=== PATIENT | male | born 1990 | race Caucasian/White ===

== ENCOUNTER → 2020-03-01 17:29 | Outpatient (CLI) | payer SELFPAY | LOC: MTDU 17:29 | DX: Z11.59 Encounter for screening for other viral diseases (principal) | CPT/HCPCS: 87635; C9803; U0005; U0003 ==

== ENCOUNTER 2022-11-10 13:02 | Observation (INO) | payer MEDICAID, SELFPAY ==
[2022-11-10 13:03] VITALS: BP 110/81; PULSE 86; RESP 18; TEMP 36.4; O2SAT 98; BMI 25.1
--- NOTE | 2022-11-10 16:05 | CT_ITS ---
STUDY: CTA HEAD AND NECK WITH CONTRAST REASON FOR EXAM: Male, 32 years old. Right facial weakness Right anterior tongue symp RADIATION DOSAGE (If Supplied By Facility): CTDIvol = ( 32.29 ) mGy, DLP = ( 1539.65 ) mGycm TECHNIQUE: CT angiography was performed with a multi-detector CT scanner. Data acquisition was obtained from the skull base through the vertex following intravenous administration of IV 100mL Isovue-370. MIP images were reconstructed from the axial data set. Post-processing of the angiographic images was performed, with multiplanar reformation and 3D reconstruction. Individualized dose optimization techniques were used for this CT. COMPARISON: No relevant priors. FINDINGS: Normal bilateral petrous carotid arteries. Normal right cavernous carotid artery with a normal supraclinoid bifurcation. Normal left cavernous carotid artery with a normal supraclinoid bifurcation. Normal right A1 segments of the anterior cerebral artery. Normal left A1 segments of the anterior cerebral artery. Normal intact anterior communicating artery (ACOM). Normal bilateral A2 segments of the anterior cerebral arteries. Normal right M1 and M2 segments of the middle cerebral arteries, with a normal M1 bifurcation. Normal left M1 and M2 segments of the middle cerebral arteries, with a normal M1 bifurcation. There is non-visualization of the right posterior communicating artery (PCOM). There is non-visualization of the left posterior communicating artery (PCOM). Normal bilateral vertebral arteries. Normal basilar artery with a normal basilar bifurcation. The visualized bilateral superior cerebellar (SCA) arteries are normal. Normal bilateral P1, P2 and visualized P3 segments of the posterior cerebral arteries. There is no demonstrated aneurysm of the jackson of [place]. There is no demonstrated abnormality of the visualized brain. AORTIC ARCH: Normal visualized aortic arch. Retroesophageal aberrant origin right subclavian artery. Origins are otherwise normal. RIGHT CAROTID ARTERIES: Normal right common carotid artery (CCA). Normal right common carotid bulb. Normal origin of the right internal carotid (ICA) artery without a hemodynamically significant stenosis. Normal visualized cervical portion of the right internal carotid artery. Normal origin of the right external carotid artery (ECA). LEFT CAROTID ARTERIES: Normal left common carotid artery (CCA). Normal left common carotid bulb. Normal origin of the left internal carotid (ICA) artery without a hemodynamically significant stenosis. Normal visualized cervical portion of the left internal carotid artery. Normal origin of the left external carotid artery (ECA). VERTEBRAL ARTERIES: Normal bilateral vertebral arteries. CT/CTA Head AND Neck W/ Contrast IMPRESSION: Aberrant origin right subclavian artery otherwise Normal CTA Head and neck with contrast. Sensitivity limited without 3-D reformats. An addendum will be performed if and when these become available. Electronically Signed: Juan Francisco Jerez MD at 17:50 EDT ,
--- NOTE | 2022-11-10 16:09 | EX.ED.DYSGE1 ---
HPI History of Present Illness Chief Complaint: Numb/Ting Informant: patient Narrative Narrative: 32-year-old healthy male presenting to the emergency room with altered sensation and taste. Patient states that yesterday morning he noticed a taste difference in the right anterior tongue. He also states that the tongue felt different compared to the left - almost like it was numb. He had a generalized headache later in the day and felt very fatigued. He states that today he noticed that he had altered sensation of the right perioral and cheek region. He notes that he feels that the right side of his smile is less on the left. He has no headache today. He denies any recent head or neck injury. He denies any arm or leg symptoms. No speech symptoms. He has not had any difficulty swallowing. No change in vision or hearing. He does state that the right eye does seem pulp drier compared to the left. He denies any rashes. PFSH PFSH Medical History no medical history no medical history Allergy/AdvReac Type Severity Reaction Status Date / Time No Known Allergies Allergy Verified 11/10/22 13:03 Social History (Updated 11/10/22 @ 16:[address] Francois Medina, DO) current gender identity: male Smoking Status: Former smoker substance use type: does not use ROS ROS ED Constitutional Constitutional ED: Denies chills, fever(s) or weight loss Eyes Eyes: Denies blurry vision, change in vision or diplopia ENT ENT ED: Reports other Details: See history of present illness ; Denies ear pain, rhinorrhea or sore throat Cardiovascular Cardiovascular: Denies chest pain, orthopnea, palpitations or racing heartbeat Respiratory/Chest Respiratory/Chest: Denies cough, dyspnea or orthopnea Gastrointestinal Gastrointestinal: Denies abdominal pain, diarrhea, nausea or vomiting Genitourinary Genitourinary ED: Denies dysuria, hematuria or urinary frequency Musculoskeletal Musculoskeletal: Denies arthralgias or myalgias Integumentary Denies abscess or rash Neurologic Neurologic: Reports headache(s), weakness and other Details: See history of present illness Psychiatric Psychiatric: Denies anxiety, depression, suicidal ideation or suicidal thoughts Endocrine Endocrinology: Denies polydipsia, polyphagia or polyuria Allergic/Immunologic Allergic/Immunologic ED: Denies mouth swelling, tongue swelling or urticaria EXAM Physical Exam Const Vital Signs: 09/19/23 13:03 Temperature 97.6 F L Temperature Source Temporal Pulse Rate 86 Respiratory Rate 18 Blood Pressure 110/81 H Blood Pressure Mean 90 Pulse Ox 98 Oxygen Delivery Method Room Air Positive well nourished and well developed General Appearance ED: well developed HEENT Reports normocephalic, head/scalp atraumatic, TM's clear and moist mucous membranes HEENT Narrative: When asked to stick his tongue out to the tongue seems to deviate to the left. He notes a decrease sensation in the right perioral right cheek region. He is able to wrinkle his forehead. There is decreased smile on the right compared to the left. I do not appreciate any lesions on the tympanic membrane or on the tip of the nose. The ear canal appears normal. There is a old scar on the right tympanic membrane from previous trauma. No facial rash. Tympanic Membrane ED: Yes TM's clear Eyes PERRL and EOMs intact bilaterally Neck no lymphadenopathy, supple and no JVD Neck Narrative: No carotid bruits auscultated. Resp normal respiratory effort and clear to auscultation bilaterally Cardio regular rate, regular rhythm and no murmurs GI normal to inspection, nondistended, normoactive bowel sounds and non-tender Palpation: soft Back/Spine no CVA tenderness and normal ROM Extremity normal to inspection General Extremety ED: Negative for edema General Extremity: Negative for edema Neuro oriented x3 and CN's II-XII intact bilaterally Neuro Narrative: See HEENT exam. NIH score of 2 for slight right facial droop and reported decreased sensation. Sensorium / Orientation: alert Psych mental status grossly normal Mood & Affect: Negative for depressed or tearful Skin no rashes or lesions noted and no wounds MDM MDM MDM Narrative Medical decision making narrative: Basic blood work was unremarkable. EKG shows a sinus bradycardia cardia with a ventricular rate of 48 bpm. CTA head and neck is negative. I spoke with Dr. Perez from ENT. He has requested a MRI with and without contrast with attention to the internal auditory canal. Unfortunately I am unable to obtain this tonight. Our plan is going to be to observe the patient tonight get the MRI in the morning. If this is negative we will proceed with a plan of Valtrex and prednisone with ENT follow-up. Patient is comfortable with this plan. Lab Data Attestation: I reviewed the patient's lab results. Labs: Laboratory Results - last 24 hr 11/10/22 16:15 WBC 6.9 RBC 5.40 Hgb 16.4 Hct 47.9 MCV 88.7 MCH 30.4 MCHC 34.2 RDW Std Deviation 39.8 RDW Coeff of Rebeca 12.2 Plt Count 221 MPV 10.7 Immature Gran % (Auto) 0.100 Neut % (Auto) 60.7 Lymph % (Auto) 31.0 [place] % (Auto) 7.1 Eos % (Auto) 1.0 Baso % (Auto) 0.1 Absolute Neuts (auto) 4.2 Absolute Lymphs (auto) 2.14 Nucleated RBC % 0 Sodium 140 Potassium 4.3 Chloride 105 Carbon Dioxide 31.0 Anion Gap 4 L BUN 18 Creatinine 1.46 H Estim Creat Clear Calc 75.00 Est GFR (MDRD) Af Amer 72 Est GFR (MDRD) Non-Af 60 BUN/Creatinine Ratio 12.3 Glucose 74 Calcium 8.5 Radiography Diagnostic Testing: Clinical Impression(s) from Imaging Studies Head/Neck CTA 11/10/22 16:05 IMPRESSION: Aberrant origin right subclavian artery otherwise Normal CTA Head and neck with contrast. Sensitivity limited without 3-D reformats. An addendum will be performed if and when these become available. Electronically Signed: Juan Francisco Jerez MD at 17:50 EDT , EKG Initial EKG: Attestation: I personally reviewed and interpreted this EKG as follows: Comments: Sinus bradycardia with ventricular rate of 48 bpm Discharge Plan Dx/Rx/DC Orders Clinical Impression: Facial droop, [place] Disposition Disposition: Acute Care Hospital [facility]
[2022-11-10 16:35] LABS: Absolute Lymphocyte Count 2.14 X10^3/uL (0.83-4.51); Absolute Neutrophil Count 4.2 X10^3/uL (2.0-7.7); Basophil# 0.01 X10^3/uL; Basophil% 0.1 % (0-1); Eosinophil# 0.07 X10^3/uL; Hematocrit 47.9 % (40-54); Hemoglobin 16.4 g/dL (13.0-16.5); Lymphocyte # 2.14 X10^3/ul (0.83-4.51); Mean Corp Hgb Conc 34.2 g/dL (32-36); Mean Corpuscular Hgb 30.4 pg (27.0-32.0); Mean Corpuscular Volume 88.7 fL (80-94); Mean Platelet Vol. 10.7 fl (6.2-12.0); Monocyte# 0.49 X10^3/uL; Monocyte% 7.1 % (0-10); NRBC Flagged by Analyzer 0 % (0-5); Neutrophil # 4.19 X10^3/uL (2.7-7.7); Neutrophil % 60.7 % (47-70); Platelet Count 221 K/mm3 (150-450); RBC Distribution Width CV 12.2 % (11.6-14.6); RBC Distribution Width SD 39.8 fl (35.1-43.9); White Blood Count 6.9 K/mm3 (4.4-11.0)
[2022-11-10 16:43] LABS: Anion Gap 4 (5-15); BUN 18 mg/dL (7-18); BUN/Creat Ratio 12.3 RATIO (10-20); Calcium,Total 8.5 mg/dL (8.5-10.1); Chloride 105 mmol/L (98-107); Creatinine, Serum 1.46 mg/dL (0.70-1.30); EST Glomerular Filtration Rate 60 mL/min (>60); Est Glom Filt Rate - Afr Amer 72 mL/min (>60); Glucose 74 mg/dL (74-106); Potassium 4.3 mmol/L (3.5-5.1); Sodium Level 140 mmol/L (136-145)
--- NOTE | 2022-11-10 19:03 | EKG12_ITS ---
Test Reason : Blood Pressure : / mmHG Vent. Rate : 048 BPM Atrial Rate : 048 BPM P-R Int : 188 ms QRS Dur : 100 ms QT Int : 432 ms P-R-T Axes : 073 077 035 degrees QTc Int : 385 ms Sinus bradycardia with marked sinus arrhythmia Otherwise normal ECG Confirmed by DIONI LUZ, KURT ([id number]), movie editor LUTHER HERNANDEZ ([id number]) on 11/16/2022 2:14:46 PM Referred By: Confirmed By:AMARILIS WHEATLEY MD
--- NOTE | 2022-11-10 19:09 | HP.PCM.HOS_ITS ---
HPI - General General Date of Admission: 11/10/22 Date of Service: 11/10/22 Chief Complaint: + Sensation of right-sided facial droop as well as right perioral paresthesias, right-sided headache, right dry eye. HPI Narrative The patient is a 32 y/o M w/ PMHx: HSV-2 Genital herpes otherwise not marked medical history who presents to the [facility] ED on 11/10/22 with history of altered sensation and taste noted yesterday morning the taste was different on the right anterior side of the tongue compared to the left and he felt as though the right was slightly numb as well as onset of a generalized headache later in the day with increased fatigue and malaise with then onset of altered sensation to the right perioral and cheek region specifically stating that he felt as though his smile was less strong on the left side compared to the right with headache resolved today and no recent head or neck injury nor injury to the arms or extremities morning speech or confusion issues but does report right eye feels mildly dry compared to the left prompting eventual ED evaluation. Patient does report that since onset he has had less oral intake including decreased hydration. He denies any recent URI type illness or any fevers or chills. Work-up in the ED included T97.6, heart rate 86, BP 110/81, respiratory rate 18, 98% on room air, CBC with WBC 6.9, he 116.4, platelet 221 without shift, BMP with BUN/creatinine 18/1.46 with no comparison of note, CTA head and neck with an apparent origin right subclavian artery otherwise normal, EKG pending upon evaluation. ED discussed case with ENT Dr. Mustafa who recommended MRI brain with and without with attention to the IAC and if no acute findings valtrex and prednisone started with follow-up in the office in 1 week. [facility] Medical History (Updated 11/10/22 @ 19:[address] Letitia Husain MD) Genital HSV HSV-2 (herpes simplex virus 2) infection Medical History no medical history Allergy/AdvReac Type Severity Reaction Status Date / Time No Known Allergies Allergy Verified 11/10/22 13:03 Family History (Updated 11/10/22 @ 19:[address] Letitia Husain MD) Father Diabetes Mother Relapsing polychondritis Rheumatoid arthritis Surgical History (Updated 11/10/22 @ 19:[address] Letitia Husain MD) History of dental surgery Social History (Updated 11/10/22 @ 19:[address] Letitia Husain MD) household members: none Smoking Status: Never smoker alcohol intake: never substance use type: does not use ROS ROS Narrative Admission Review of Systems: CONSTITUTIONAL: No weight loss, fever, chills, + weakness or fatigue. HEENT: + Sensation of right-sided facial droop as well as perioral paresthesias, right-sided headache, right dry eye. Eyes: No visual loss, blurred vision, double vision or yellow sclerae. Ears, Nose, Throat: No hearing loss, sneezing, congestion, runny nose or sore throat. SKIN: No rash or itching, lesions, wounds. CARDIOVASCULAR: No chest pain, chest pressure or chest discomfort, palpitations, edema, orthopnea, syncopal events. RESPIRATORY: No shortness of breath, cough or sputum, wheezing, hemoptysis. GASTROINTESTINAL: No anorexia, nausea, vomiting or diarrhea, abdominal pain, melena, BRBPR. GENITOURINARY: No dysuria, frequency, urgency or retention. NEUROLOGICAL: + Sensation of right-sided facial droop as well as perioral paresthesias, right-sided headache, right dry eye. No dizziness, syncope, paralysis, ataxia, numbness or tingling in the extremities, focal weakness, change in bowel or bladder control, seizure. MUSCULOSKELETAL: No muscle, back pain, joint pain or stiffness. HEMATOLOGIC: No anemia, bleeding or bruising. LYMPHATICS: No enlarged nodes. No history of splenectomy. PSYCHIATRIC: No history of depression or anxiety. ENDOCRINOLOGIC: No reports of sweating, cold or heat intolerance. No polyuria or polydipsia. ALLERGIES: No history of asthma, hives, eczema or rhinitis. Vital Signs Vital Signs Vital Signs: 11/10/22 13:03 Temperature 97.6 F L Temperature Source Temporal Pulse Rate 86 Respiratory Rate 18 Blood Pressure 110/81 H Blood Pressure Mean 90 Pulse Ox 98 Oxygen Delivery Method Room Air Weight Weight: 175 lb Body Mass Index (BMI) 25.1 Physical Exam Narrative Physical Examination: General: Awake, alert, oriented x 3 and cooperative, seated upright in the ED bed in no apparent distress. Skin: Normal color, normal turgor, no icterus, no cyanosis. HEENT: AT/NC, EOMI, PERRLA, MMM, no carotid bruits or JVD noted, ongoing mild right-sided facial droop most notable with attempted smile as well as mild right ongoing perioral facial numbness, no involvement of the forehead of note. Lungs: CTA bilaterally, moderate effort, mild decrease BL bases, no rales, ronchi or wheezing. Heart: Mildly bradycardic with regular rhythm; no gallop, rub audible. Abdomen: Soft, NTTP, ND, normal BS, no HSM. Extremities: No cyanosis, clubbing, or edema. Neurological: Patient awake, alert, oriented as noted, cognitive function intact; pupils equally reactive to light and accommodation, cranial nerves grossly normal except noted ongoing mild right-sided facial droop most notable with attempted smile as well as mild right ongoing perioral facial numbness, no involvement of the forehead of note, moving all 4 extremities, strength preserved, FTN/HTS appropriate. Psychiatric: Affect appears normal, no acute evidence of depressive or anxiety feelings. Results Lab / Micro Data 11/10/22 16:15 11/10/22 16:15 Labs: Laboratory Results - last 24 hr 11/10/22 16:15: WBC 6.9, RBC 5.40, Hgb 16.4, Hct 47.9, MCV 88.7, MCH 30.4, MCHC 34.2, RDW Std Deviation 39.8, RDW Coeff of Rebeca 12.2, Plt Count 221, MPV 10.7, Immature Gran % (Auto) 0.100, Neut % (Auto) 60.7, Lymph % (Auto) 31.0, [place] % (Auto) 7.1, Eos % (Auto) 1.0, Baso % (Auto) 0.1, Absolute Neuts (auto) 4.2, Absolute Lymphs (auto) 2.14, Nucleated RBC % 0, Sodium 140, Potassium 4.3, C hloride 105, Carbon Dioxide 31.0, Anion Gap 4 L, BUN 18, Creatinine 1.46 H, Estim Creat Clear Calc 75.00, Est GFR (MDRD) Af Amer 72, Est GFR (MDRD) Non-Af 60, BUN/Creatinine Ratio 12.3, Glucose 74, Calcium 8.5 Radiology Impression Head/Neck CTA 11/10/22 16:05 IMPRESSION: Aberrant origin right subclavian artery otherwise Normal CTA Head and neck with contrast. Sensitivity limited without 3-D reformats. An addendum will be performed if and when these become available. Electronically Signed: Juan Francisco Jerez MD at 17:50 EDT , Assessment & Plan Assessment/Plan (1) Facial droop: PLAN: Plan The patient is a 32 y/o M w/ PMHx: HSV-2 Genital herpes otherwise not marked medical history who presents to the [facility] ED on 11/10/22 with history of altered sensation and taste noted yesterday morning the taste was different on the right anterior side of the tongue compared to the left and he felt as though the left was slightly numb as well as onset of a generalized headache later in the day with increased fatigue and malaise with then onset of altered sensation to the right perioral and cheek region specifically stating that he felt as though his smile was less strong on the left side compared to the right with headache resolved today. #1. Suspected Early Dill's Palsy but still atypical (Transient right-sided perioral paresthesias as well as right-sided possible transient facial droop and transient right-sided headache); however, still concerning for possible Complex migraine versus Acute TIA/CVA: Will admit to PCU, will obtain MRI Brain with and without, maintain on asa. Will obtain Mag, TSH, FLP, HgbA1c. Will hold on PT/OT/ST/ECHO evaluation; however, if MRI positive then would initiate all stroke protocols. If acute stroke is ruled out then certainly could be a complex migraine and may need to pursue further evaluation including possible neurology consultation. We will obtain urine drug screen. #2. Suspect RENALDO but no clear renal function comparison but given age lower suspicion for chronic kidney disease: Admission BUN/Cr 18/1.46, baseline renal function unclear, repeat BMP in AM, maintain on judicious hydration. #3. DVT Prophylaxis: Encourage ambulation. Charges/Coding Visit Charges Inpatient E&M: 43364 Init Hosp L2
[2022-11-10 19:51] LABS: Magnesium 2.6 mg/dL (1.6-2.6)
--- NOTE | 2022-11-10 20:10 | CM.ED ---
Social Work SW Face to Face with patient for initial transition planning/care coordination assessment. SW introduced self and role at [facility]. Patient seated in bed, alert and oriented. Patient willing to participate in assessment and is able to answer all questions appropriately.? Care providers, pharmacy, and demographics verified. Patient wishes to discharge home, denies needs at this time. CM/SW to follow for discharge planning needs that may arise. PCP: none, SW provided list of PCPs in network with patient's insurance and accepting new patients Specialists: none Preferred Pharmacy: [facility] Insurance: Medicaid- [place] Prescription Benefit:?yes Living Will/HPOA: no, not interested in information at this time LNOK: patient's brother, Stanislaw Living Arrangements: Patient lives on second floor of apartment building, not concerned with navigating stairs Transportation: Patient has personal transportation, no needs DME/HHC: none Disposition Plan: Home, no needs Raine Goyal MSW, JARRELL
[2022-11-10 21:55] VITALS: BP 128/82; PULSE 75; RESP 16; TEMP 36.6; O2SAT 97
[2022-11-10 21:59] VITALS: BP 128/87; PULSE 74; RESP 16; O2SAT 97
--- NOTE | 2022-11-10 22:16 | MRI_ITS ---
INDICATION: CVA -- ENT would like special attention also to IAC EXAMINATION: MRI - MR Brain WO/W Contrast TECHNIQUE: Multiplanar and multisequence MR images of the brain were obtained without and with gadolinium. IV Contrast Dosage and Agent: None. COMPARISON: CTA head 11/10/2022. FINDINGS: BRAIN AND EXTRA-AXIAL SPACES: No intracranial mass, mass effect, or midline shift. No enhancing lesion. No hemorrhage, territorial infarct or acute ischemia. Normal white matter. Ventricles normal in size. Basal cisterns are unremarkable. SELLA: Pituitary gland is normal in height. AUDITORY SYSTEM: Unremarkable IACs. No enhancing lesion in the internal auditory canals. BONES/JOINTS: Unremarkable. SINUSES: Unremarkable as visualized. Clear. MASTOID AIR CELLS: Unremarkable as visualized. Clear. ORBITS: Unremarkable as visualized. VASCULATURE: Normal flow voids in the major intracranial circulation. MRI/Brain W/WO Contrast IMPRESSION: Negative MR of the brain. Electronically Signed: Ana M Gibson MD at 16:59 EDT [place] Location ID and State: [id number] / Tel , Service support ,
[2022-11-10 22:21] VITALS: BMI 25.1
[2022-11-10 22:25] VITALS: BP 140/92; PULSE 57; RESP 16; TEMP 36.4; O2SAT 100
[2022-11-10] MEDS: 0.9% Normal Saline (1000mL) 1,000 ML 125 ML IV (22:30)
[2022-11-10] MEDS: 0.9% Saline Lock 10 ML Syringe IV (23:53)
[2022-11-11] VITALS (11 sets, daily range): BP systolic 103–124; BP diastolic 53–89; PULSE 50–68; RESP 12–18; TEMP 36.5–36.8; O2SAT 97–100; BMI 25.1
[2022-11-11] MEDS: 0.9% Normal Saline (1000mL) 1,000 ML 125 ML IV (06:44)
[2022-11-11 06:52] LABS: Absolute Lymphocyte Count 2.54 X10^3/uL (0.83-4.51); Absolute Neutrophil Count 3.4 X10^3/uL (2.0-7.7); Basophil# 0.01 X10^3/uL; Basophil% 0.2 % (0-1); Eosinophil# 0.08 X10^3/uL; Eosinophils% 1.2 % (0-5); Hematocrit 44.2 % (40-54); Hemoglobin 14.7 g/dL (13.0-16.5); Lymphocyte # 2.54 X10^3/ul (0.83-4.51); Lymphocyte % 38.8 % (19-41); Mean Corp Hgb Conc 33.3 g/dL (32-36); Mean Corpuscular Hgb 29.6 pg (27.0-32.0); Mean Corpuscular Volume 89.1 fL (80-94); Mean Platelet Vol. 10.9 fl (6.2-12.0); Monocyte% 7.6 % (0-10); NRBC Flagged by Analyzer 0 % (0-5); Platelet Count 199 K/mm3 (150-450); RBC Distribution Width CV 12.4 % (11.6-14.6); RBC Distribution Width SD 40.5 fl (35.1-43.9); Red Blood Count 4.96 M/mm3 (4.6-6.2); White Blood Count 6.5 K/mm3 (4.4-11.0)
[2022-11-11 07:39] LABS: ALB/GLOB Ratio 1.1 RATIO (0.9-2.4); AST(SGOT) 23 U/L (15-37); Alanine Aminotransfer ALT/SGPT 29 U/L (16-61); Albumin, Serum 3.2 g/dL (3.2-5.0); Alkaline Phosphatase 66 U/L (45-117); Anion Gap 5 (5-15); BUN 17 mg/dL (7-18); Calcium,Total 7.7 mg/dL (8.5-10.1); Chloride 112 mmol/L (98-107); Cholesterol 134 mg/dL (200); Creatinine, Serum 1.31 mg/dL (0.70-1.30); EST Glomerular Filtration Rate 67 mL/min (>60); Est Glom Filt Rate - Afr Amer 82 mL/min (>60); Estimated Creatinine Clearance 83.59 ml/min; Glucose 92 mg/dL (74-106); High Density Lipoprotein 46 mg/dL; Potassium 4.1 mmol/L (3.5-5.1); Protein, Total 6.2 g/dL (6.4-8.2); Sodium Level 140 mmol/L (136-145); Thyroid Stim Hormone (TSH) 2.71 uIU/mL (0.358-3.74); Triglycerides 105 mg/dL; Very Low Density Lipoprotein 21 mg/dL (5-40)
[2022-11-11 08:58] LABS: Amphetamine Urine VISTA NEGATIVE (<1000 ng/mL); Barbiturate Urine VISTA NEGATIVE (< 200 ng/mL); Benzodiazepine Urine VISTA NEGATIVE (< 200 ng/mL); Cocaine Urine VISTA NEGATIVE (< 300 ng/mL); Ecstacy Urine VISTA NEGATIVE (< 500 ng/mL); Methadone Urine VISTA NEGATIVE (< 300 ng/mL); PCP Urine VISTA NEGATIVE (< 25 ng/mL); THC Urine VISTA POSITIVE (< 50 ng/mL); Vista UDS pH Range 4
[2022-11-11 09:37] LABS: Hemoglobin A1c 5.1 % (3.8-5.6)
[2022-11-11] MEDS: LORazepam 2 MG/ML Syringe 1 MG IV (13:53)
[2022-11-11] MEDS: 0.9% Saline Lock 10 ML Syringe IV (13:53)
--- NOTE | 2022-11-11 15:29 | PN_ITS ---
Subjective Subjective Patient seen and examined. He still complains of right facial numbness and right perioral parasthesias. Headache had improved. Review of systems is otherwise negative. He had MRI of the brain today which showed no evidence of stroke. He has remained hemodynamically stable. Objective Data Objective Data Vital Signs: Vital Signs Temp Pulse Resp BP Pulse Ox O2 Del Method 98.1 F 54 L 12 112/53 L 97 Room Air 11/11/22 12:35 11/11/22 15:14 11/11/22 15:14 11/11/22 15:14 11/11/22 15:14 11/11/22 15:14 Oxygen Delivery Method Room Air Weight: 175 lb 4.28 oz Body Mass Index (BMI) 25.1 Intake & Output: Intake and Output for Last 24 Hours 11/09/22 11/10/22 11/11/22 23:59 23:59 23:59 Intake Total 200 / 200 2507.5 / 2507.5 Balance 200 / 200 2507.5 / 2507.5 Lab / Micro Data 11/11/22 06:07 11/11/22 06:07 Labs: Laboratory Results - last 24 hr 11/10/22 16:13: Magnesium 2.6 11/10/22 16:15: WBC 6.9, RBC 5.40, Hgb 16.4, Hct 47.9, MCV 88.7, MCH 30.4, MCHC 34.2, RDW Std Deviation 39.8, RDW Coeff of Rebeca 12.2, Plt Count 221, MPV 10.7, Immature Gran % (Auto) 0.100, Neut % (Auto) 60.7, Lymph % (Auto) 31.0, [place] % (Auto) 7.1, Eos % (Auto) 1.0, Baso % (Auto) 0.1, Absolute Neuts (auto) 4.2, Absolute Lymphs (auto) 2.14, Nucleated RBC % 0, Sodium 140, Potassium 4.3, Chloride 105, Carbon Dioxide 31.0, Anion Gap 4 L, BUN 18, Creatinine 1.46 H, Estim Creat Clear Calc 75.00, Est GFR (MDRD) Af Amer 72, Est GFR (MDRD) Non-Af 60, BUN/Creatinine Ratio 12.3, Glucose 74, Calcium 8.5 11/11/22 06:07: WBC 6.5, RBC 4.96, Hgb 14.7, Hct 44.2, MCV 89.1, MCH 29.6, MCHC 33.3, RDW Std Deviation 40.5, RDW Coeff of Rebeca 12.4, Plt Count 199, MPV 10.9, Immature Gran % (Auto) 0.200, Neut % (Auto) 52.0, Lymph % (Auto) 38.8, [place] % (Auto) 7.6, Eos % (Auto) 1.2, Baso % (Auto) 0.2, Absolute Neuts (auto) 3.4, Absolute Lymphs (auto) 2.54, Nucleated RBC % 0, Sodium 140, Potassium 4.1, Chloride 112 H, Carbon Dioxide 23.0, Anion Gap 5, BUN 17, Creatinine 1.31 H, Estim Creat Clear Calc 83.59, Est GFR (MDRD) Af Amer 82, Est GFR (MDRD) Non-Af 67, BUN/Creatinine Ratio 13.0, Glucose 92, Hemoglobin A1c 5.1, Calcium 7.7 L, Total Bilirubin 0.30, AST 23, ALT 29, Alkaline Phosphatase 66, Total Protein 6.2 L, Albumin 3.2, Globulin 3.0, Albumin/Globulin Ratio 1.1, Triglycerides 105, Cholesterol 134, LDL Cholesterol 67, VLDL Cholesterol 21, HDL Cholesterol 46, TSH 2.71 11/11/22 08:30: Urine Opiates Screen NEGATIVE, Urine Methadone Screen NEGATIVE, Ur Barbiturates Screen NEGATIVE, Ur Phencyclidine Scrn NEGATIVE, Ur Amphetamines Screen NEGATIVE, MDMA (Ecstasy) Screen NEGATIVE, U Benzodiazepines Scrn NEGATIVE, Urine Cocaine Screen NEGATIVE, U Cannabinoids Screen POSITIVE H, Ur Drug Screen Comment Micro: Microbiology 11/10/22 20:00 Nasal Secretion SARS-CoV-2 Antigen (Rapid) - Final Radiography Diagnostic Testing: Radiology Impression Head/Neck CTA 11/10/22 16:05 IMPRESSION: Aberrant origin right subclavian artery otherwise Normal CTA Head and neck with contrast. Sensitivity limited without 3-D reformats. An addendum will be performed if and when these become available. Electronically Signed: Juan Francisco Jerez MD at 17:50 EDT Reading Location ID and State: [facility] / [place] Tel , Service support , Physical Exam Const alert, oriented x3 and no apparent distress General Appearance: cooperative and well developed HEENT normocephalic, head/scalp atraumatic, moist oral mucous membranes, oropharynx normal and gingiva normal Eyes PERRL and EOMs intact bilaterally Neck no lymphadenopathy, supple and no JVD Lymph Lymphatic: no lymphadenopathy noted and no lymphedema noted Resp normal respiratory effort, normal air movement and clear to auscultation bilaterally Cardio regular rate, regular rhythm, S1 normal heart sound, S2 normal heart sound and no murmurs GI normal to inspection, nondistended, normoactive bowel sounds, soft to palpation, non-tender and non-distended Extremity normal capillary refill, no clubbing, cyanosis or edema and no calf tenderness Skin General Skin Exam: no breakdown and turgor normal Neuro Neuro Narrative: has mild right facial nerve palsy, unable to blink with the right eye. 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 * Could also be a complex migraine as he had headache associated with the symptoms. * PT OT on board. Since MRI is negative, neurology consulted. Await recs. * CT of the head also showed no acute intracranial pathology. CTA of the head and neck showed no hemodynamically significant stenosis. * #Elevated creatinine: Creatinine was 1.46 on admission but is now down to 1.31. Continue gentle hydration with IV fluids and encourage oral hydration. DVT prophylaxis; SCDs Charges/Coding Visit Charges Inpatient E&M: 31971 Subs Hosp L2
[2022-11-11] MEDS: MELATONIN 3 MG TABLET PO (23:26)
[2022-11-12 02:54] VITALS: BMI 25.1
[2022-11-12 02:55] VITALS: BMI 25.1
[2022-11-12 05:11] VITALS: BP 122/88; PULSE 66; RESP 15; TEMP 36.4; O2SAT 98
[2022-11-12] MEDS: 0.9% Saline Lock 10 ML Syringe IV (05:41)
[2022-11-12 07:35] LABS: Absolute Lymphocyte Count 2.37 X10^3/uL (0.83-4.51); Absolute Neutrophil Count 4.1 X10^3/uL (2.0-7.7); Basophil# 0.01 X10^3/uL; Basophil% 0.1 % (0-1); Eosinophils% 1.4 % (0-5); Hematocrit 44.9 % (40-54); Lymphocyte # 2.37 X10^3/ul (0.83-4.51); Lymphocyte % 32.6 % (19-41); Mean Corp Hgb Conc 33.4 g/dL (32-36); Mean Corpuscular Hgb 29.6 pg (27.0-32.0); Mean Corpuscular Volume 88.6 fL (80-94); Mean Platelet Vol. 10.8 fl (6.2-12.0); Monocyte# 0.68 X10^3/uL; Monocyte% 9.4 % (0-10); NRBC Flagged by Analyzer 0 % (0-5); Neutrophil # 4.09 X10^3/uL (2.7-7.7); Neutrophil % 56.4 % (47-70); Platelet Count 203 K/mm3 (150-450); RBC Distribution Width CV 12.2 % (11.6-14.6); RBC Distribution Width SD 39.6 fl (35.1-43.9); Red Blood Count 5.07 M/mm3 (4.6-6.2); White Blood Count 7.3 K/mm3 (4.4-11.0)
[2022-11-12 07:50] VITALS: O2SAT 99
[2022-11-12 08:02] LABS: Anion Gap 4 (5-15); BUN 14 mg/dL (7-18); BUN/Creat Ratio 11.4 RATIO (10-20); Calcium,Total 8.7 mg/dL (8.5-10.1); Chloride 110 mmol/L (98-107); Creatinine, Serum 1.23 mg/dL (0.70-1.30); EST Glomerular Filtration Rate 73 mL/min (>60); Est Glom Filt Rate - Afr Amer 88 mL/min (>60); Estimated Creatinine Clearance 89.02 ml/min; Glucose 97 mg/dL (74-106); Potassium 4.1 mmol/L (3.5-5.1); Sodium Level 139 mmol/L (136-145)
[2022-11-12] MEDS: predniSONE 20 MG Tablet 60 MG PO (09:20)
[2022-11-12] MEDS: Aspirin 81 MG TAB.CHEW PO (09:21)
[2022-11-12 11:06] VITALS: BP 114/73; PULSE 50; RESP 14; TEMP 36.5; O2SAT 100
[2022-11-12 11:48] VITALS: BP 114/73; PULSE 50; RESP 14; TEMP 36.5; O2SAT 100
--- NOTE | 2022-11-12 11:48 | DCINST_ITS ---
Discharge Instructions Diet Discharge Diet: No restrictions Activity Discharge Activity: Return to Normal Activity Weight Bearing Status: Full weight bearing Dressing / Incision Call your doctor if you observe: Fever of 101 or Higher, Shortness of breath, Dizziness, Swelling in the ankles and Chest pain Follow Up Care Test Results: Test results from this visit will be discussed in further detail at your follow- up appointment, if applicable. Discharge Plan Admission Admit Date/Time: 11/10/22 19:10 Primary Reason for Your Visit: Dill's palsy Attending Provider: Kaylie Jeffries Primary Care Provider: Care Physician,No Primary Consulting Providers: Letitia Husain Instructions Patient Instructions: Dill's Palsy Discharge Orders/Prescriptions Prescriptions: New prednisone 20 mg Tablet 60 mg PO BREAKFAST 4 Days Qty: 12 0RF methylprednisolone [Medrol (Carter)] 4 mg tablets,dose pack See Taper PO DAILY Qty: 21 0RF Taper: Prednisone Taper 50 mg WITH BREAKFAST for 1 Day and 0 Hour 40 mg WITH BREAKFAST for 1 Day and 0 Hour 30 mg WITH BREAKFAST for 1 Day and 0 Hour 20 mg WITH BREAKFAST for 1 Day and 0 Hour 10 mg WITH BREAKFAST for 1 Day and 0 Hour Rx Instructions: Start taper on 11/17/2022, after completion of 4 day course of PO prednisone 60mg daily on 11/16/2022 Referrals / Follow Up: Lakhwinder Kay MD [Med Staff - Active Staff] - Within 2 Weeks (see to establish PCP care) Ashok Olsen MD [Non-Staff -Ordering Privileges] - Care Physician,No Primary [Primary Care Provider] - NOT,DEFINED [Non-Staff] - Disposition Disposition (needs filled in before D/C Order can be placed): Home, Self Care
--- NOTE | 2022-11-12 11:48 | DS.PCM_ITS ---
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 * Could also be a complex migraine as he had headache associated with the symptoms. * PT OT on board. Since MRI is negative, neurology consulted. Await recs. * CT of the head also showed no acute intracranial pathology. CTA of the head and neck showed no hemodynamically significant stenosis. * #Elevated creatinine: Creatinine was 1.46 on admission but is now down to 1.31. Continue gentle hydration with IV fluids and encourage oral hydration. DVT prophylaxis; SCDs Medications at Discharge Home Medications methylprednisolone 4 mg tablets in a dose pack (Medrol (Carter)) See Taper PO DAILY #21 tabs 11/12/22 prednisone 20 mg tablet 60 mg (3 x 20 mg) PO BREAKFAST 4 days #12 tabs 11/12/22 valacyclovir 1 gram tablet 1,000 mg PO TID 5 days #15 tabs 11/12/22 Hospital Course Operations None Procedures None Summary of Care Provided Minutes Spent on Discharge: 48 Hospital Course: Patient is a 32 y/o male with a PMh as outlined including a history of genital herpes with HSV-2, who was admitted via the ED on 11/10/2022 with a complaint of altered sensation and taste, mainly on the right side. Symptoms had been going on for a day before he came in to the ED. He had associated headache.and increased fatigue. The altered sensation mainly COVID the right. Neurology was weak on the left side compared to the also complained of feeling like his right eye was mildly dry. CT of the head and neck showed aberrant origin of the right subclavian artery but was otherwise normal. MRI of the brain done was normal. Diagnosis was therefore presumptively thought to be Dill's palsy. [facility] neurology was consulted and reviewed patient and also agreed with the diagnosis of Dill's palsy. He was started on PO prednisone 60mg daily. He was discharged home on p.o. prednisone 60 mg daily to complete a 5-day course and then to have a tapering course of prednisone. He was also discharged on valacyclovir 1000 mg 3 times daily for 5 days and is to follow-up with his primary care doctor and follow-up with neurology on outpatient basis. Patient seen and examined prior to discharge. He felt well and had no active complaints. Review of systems otherwise negative. Labs and vitals reviewed. Home medication reviewed and reconciled. Physical Exam Const alert, oriented x3 and no apparent distress General Appearance: cooperative, comfortable, well kempt and well developed HEENT normocephalic, head/scalp atraumatic, hearing grossly normal bilaterally, moist oral mucous membranes, oropharynx normal and gingiva normal Mouth: oral and palatal mucosa normal Eyes PERRL, EOMs intact bilaterally and conjunctivae normal Neck no lymphadenopathy, supple and no JVD Lymph Lymphatic: no lymphadenopathy noted and no lymphedema noted Resp normal respiratory effort, normal air movement and clear to auscultation bilaterally Cardio regular rate, regular rhythm, S1 normal heart sound, S2 normal heart sound and no murmurs GI normal to inspection, nondistended, normoactive bowel sounds, soft to palpation, non-tender and non-distended Extremity normal capillary refill, no clubbing, cyanosis or edema and no calf tenderness Skin General Skin Exam: no breakdown and turgor normal Neuro Neuro Narrative: has mild right peripheral facial nerve palsy, unable to blink with the right eye. Motor Exam: strength 5/5 throughout Psych thought process normal, cooperative and affect normal Appearance: appropriate Weight / BMI Weight Weight: 175 lb 4.28 oz Body Mass Index (BMI) 25.1 ABG / Lab / Microbiology Data 11/12/22 06:51 11/12/22 06:51 Laboratory: Laboratory Results - last 24 hr 11/12/22 06:51: WBC 7.3, RBC 5.07, Hgb 15.0, Hct 44.9, MCV 88.6, MCH 29.6, MCHC 33.4, RDW Std Deviation 39.6, RDW Coeff of Rebeca 12.2, Plt Count 203, MPV 10.8, Immature Gran % (Auto) 0.100, Neut % (Auto) 56.4, Lymph % (Auto) 32.6, [place] % (Auto) 9.4, Eos % (Auto) 1.4, Baso % (Auto) 0.1, Absolute Neuts (auto) 4.1, Absolute Lymphs (auto) 2.37, Nucleated RBC % 0, Sodium 139, Potassium 4.1, Chloride 110 H, Carbon Dioxide 25.0, Anion Gap 4 L, BUN 14, Creatinine 1.23, Estim Creat Clear Calc 89.02, Est GFR (MDRD) Af Amer 88, Est GFR (MDRD) Non-Af 73, BUN/Creatinine Ratio 11.4, Glucose 97, Calcium 8.7 Microbiology: Microbiology 11/10/22 20:00 Nasal Secretion SARS-CoV-2 Antigen (Rapid) - Final Radiography Diagnostic Testing: Radiology Impression Brain MRI 11/10/22 22:16 IMPRESSION: Negative MR of the brain. Electronically Signed: Ana M Gibson MD at 16:59 EDT Reading Location ID and State: [id number] / Tel , Service support , D/C Instructions Discharge Diet: No restrictions Weight Bearing Status: Full weight bearing Call your doctor if you observe: Fever of 101 or Higher, Shortness of breath, Dizziness, Swelling in the ankles and Chest pain Meaningful Use Info Meaningful Use Diagnoses (Choose all that apply): None applicable Discharge Plan Admission Admit Date/Time: 11/10/22 19:10 Primary Reason for Your Visit: Dill's palsy Attending Provider: Kaylie Jeffries Primary Care Provider: Care Physician,Celena Primary Consulting Providers: Letitia Husain Instructions Patient Instructions: Dill's Palsy Discharge Orders/Prescriptions Prescriptions: New prednisone 20 mg Tablet 60 mg PO BREAKFAST 4 Days Qty: 12 0RF methylprednisolone [Medrol (Carter)] 4 mg tablets,dose pack See Taper PO DAILY Qty: 21 0RF Taper: Prednisone Taper 50 mg WITH BREAKFAST for 1 Day and 0 Hour 40 mg WITH BREAKFAST for 1 Day and 0 Hour 30 mg WITH BREAKFAST for 1 Day and 0 Hour 20 mg WITH BREAKFAST for 1 Day and 0 Hour 10 mg WITH BREAKFAST for 1 Day and 0 Hour Rx Instructions: Start taper on 11/17/2022, after completion of 4 day course of PO prednisone 60mg daily on 11/16/2022 valacyclovir 1 gram tablet 1,000 mg PO TID 5 Days Qty: 15 0RF Referrals / Follow Up: Lakhwinder Kay MD [Med Staff - Active Staff] - Within 2 Weeks (see to establish PCP care) Ashok Olsen MD [Non-Staff -Ordering Privileges] - Care Physician,No Primary [Primary Care Provider] - NOT,DEFINED [Non-Staff] - Disposition Disposition (needs filled in before D/C Order can be placed): Home, Self Care Charges/Coding Visit Charges Inpatient E&M: 93971 Disch Hosp >30min
== END 2022-11-12 11:48 | disposition home or self-care (01) ==
LOC: ED 19:39 → PCU 19:48
PROVIDERS: Admitting Provider Family Medicine; Emergency Provider Emergency Medicine; Visit Provider Student in an Organized Health Care Education/Training Program
DX: R29.810 Facial weakness (principal); R00.1 Bradycardia, unspecified; Z87.891 Personal history of nicotine dependence; R53.81 Other malaise; R51.9 Headache, unspecified; R20.0 Anesthesia of skin; R20.2 Paresthesia of skin; R43.2 Parageusia; R79.89 Other specified abnormal findings of blood chemistry
CPT/HCPCS: 36415; 70496; 70498; 70553; 80048; 80053; 80061; 80307; 83036; 83735; 84443; 85025; 87811; 93005; 96361; 96374; 99221; 99285; A9575; J7030; Q9967; A4216; G0378

== ENCOUNTER 2023-12-26 13:53 | Emergency (ER) | payer MEDICAID, SELFPAY ==
[2023-12-26 13:54] VITALS: BP 127/72; PULSE 75; RESP 16; TEMP 36.8; O2SAT 99; BMI 27.1
--- NOTE | 2023-12-26 14:07 | EX.ED.DYSGE1 ---
HPI History of Present Illness Chief Complaint: Abd Pain [facility] Medical History Genital HSV HSV-2 (herpes simplex virus 2) infection Migraines Home Medications ?Medication ?Instructions ?Recorded ?Last Taken ?Type amoxicillin 875 mg-potassium 1 tab PO BID 7 days #14 tabs 12/26/23 Unknown Rx clavulanate 125 mg tablet Allergy/AdvReac Type Severity Reaction Status Date / Time No Known Allergies Allergy Verified 12/26/23 13:55 Family History Father Diabetes Mother Relapsing polychondritis Rheumatoid arthritis Surgical History History of dental surgery Social History (Updated 11/16/22 @ 14:[address] Anh Carvajal MD) household members: none current occupational status: employed current occupation: [employer] Smoking Status: Never smoker Electronic Cigarette Use: not used alcohol intake: never substance use type: does not use do you feel safe at home: Yes EXAM Physical Exam Const Vital Signs: 12/26/23 13:54 Temperature 98.2 F Temperature Source Oral Pulse Rate 75 Respiratory Rate 16 Blood Pressure 127/72 H Blood Pressure Mean 90 Pulse Ox 99 Oxygen Delivery Method Room Air [facility] MDM Narrative Medical decision making narrative: HISTORY OF PRESENT ILLNESS: 33-year-old male presents with concern for left lower quad abdominal pain. Notes started several days ago. He further states he said no history of surgeries. No vomiting. No fever. No urinary complaints. No constipation or diarrhea, no melena hematochezia. Does not drink alcohol. REVIEW OF SYSTEMS: Pertinent positives: Abdominal pain Pertinent negatives: Nausea, vomiting, fever, chest pain, shortness of PHYSICAL EXAM: Nursing triage notes reviewed, Vital signs reviewed Constitutional: please see mdm HENT: MMM Eyes: Pupils equal round and reactive to light, Extraocular muscles intact Neck: No stridor, no JVD, full neck ROM Lungs: Clear to auscultation, No wheezing or rales. No increased work of breathing, no conversational dyspnea, no accessory muscle use, no nasal flaring. No respiratory distress noted. No rib tenderness. Heart: Regular rate and rhythm, No murmurs, No rubs and No gallops, 2+ distal pulses (radial, femoral, posterior tibial) in all extremities Abdomen: Soft, left lower quadrant TTP, but no rigidity, rebound or guarding, no obvious peritoneal signs, no palpable pulsatile abdominal masses, no auscultated abdominal bruit : No CVAT Extremities: No edema Neuro: No focal neurological deficits, cranial nerves II through XII intact, 5/5 strength in all extremities. Intact sensation to light touch in all extremities, 2+ reflexes bilateral patella tendons. Normal gait. No ataxia. Skin: No rash or lesions noted MEDICAL DECISION MAKING: Chief Complaint: Abdominal pain External records reviewed: Reviewed prior imaging studies, allergies, problem list, vital signs, current medication Factors affecting care: none Social determinants of health: none History obtained from others: none Consults: none MDM Narrative: The patient was initially hemodynamically stable. Abdominal exam was overall benign there was some slight left lower quadrant tenderness. I considered the following differential diagnosis: AAA, small bowel obstruction, abdominal perforation, appendicitis, pancreatitis, hepatobiliary pathology (acute cholecystitis), mesenteric ischemia, pathology (ie nephrolithiasis, pyelonephritis). ALL IMAGES (IF OBTAINED) HAVE BEEN PERSONALLY REVIEWED AND INTERPRETED BY MYSELF. CBC without leukocytosis, severe anemia, no thrombocytopenia. CMP without evidence of acute kidney injury, significant electrolyte abnormality, anion gap to suggest end organ hypo-perfusion, no evidence of metabolic acidosis with a normal bicarbonate, no evidence of hepatobiliary obstructive pathology. Lipase is wnl indicating no pancreatic inflammation. CT scan of pelvis showed evidence of diverticulitis no perforation or abscess noted The synthesis of the patient's history, physical exam, labs images suggest likely acute diverticulitis. Patient was given Augmentin for empiric therapy. Strict return precautions were discussed. The patient and/or family, caregivers express understanding. The patient and/or family, caregivers agrees with the plan. Shared decision making: I will have a discussion with the patient and or visitors regarding risk/benefits of further testing or admission. They will be made aware of of the risk/benefits inherent in this decision they will be given the opportunity to voice understanding. Total critical care time today provided was at least 0 minutes. This excludes separately billable procedures. Critical care time (if documented) is secondary to the patient having high probability of clinically significant/life threatening deterioration in the patient's condition which required my urgent intervention. Impression: 1. Abdominal pain 2. Acute diverticulitis Dispo: Discharge This note was generated with [employer] dictation software. It may contain incorrect words, spelling, and punctuation that were not noted in review of the chart prior to signing. Lab Data Labs: Laboratory Results - last 24 hr 12/26/23 14:20 WBC 7.0 RBC 4.98 Hgb 14.4 Hct 43.6 MCV 87.6 MCH 28.9 MCHC 33.0 RDW Std Deviation 39.0 RDW Coeff of Rebeca 12.1 Plt Count 214 MPV 10.6 Immature Gran % (Auto) 0.100 Neut % (Auto) 64.5 Lymph % (Auto) 26.1 [place] % (Auto) 7.1 Eos % (Auto) 1.9 Baso % (Auto) 0.3 Absolute Neuts (auto) 4.5 Absolute Lymphs (auto) 1.83 Nucleated RBC % 0 Sodium 142 Potassium 4.4 Chloride 110 H Carbon Dioxide 29.0 Anion Gap 3 L BUN 16 Creatinine 1.22 Estim Creat Clear Calc 88.92 Est GFR (MDRD) Af Amer 88 Est GFR (MDRD) Non-Af 73 BUN/Creatinine Ratio 13.1 Glucose 90 Calcium 8.4 L Total Bilirubin 0.30 AST 59 H ALT 52 Alkaline Phosphatase 94 Total Protein 6.7 Albumin 3.6 Globulin 3.1 Albumin/Globulin Ratio 1.2 Lipase 37 Radiography Diagnostic Testing: Clinical Impression(s) from Imaging Studies Abdomen/Pelvis CT 12/26/23 14:24 IMPRESSION: Focal diverticulitis of the proximal ascending colon. Electronically Signed: Kathe Royal MD at 14:53 EST , Discharge Plan Triage Chief Complaint: Abd Pain ED Provider: Troy Bruno Dx/Rx/DC Orders Clinical Impression: Diverticulitis large intestine Instructions: Diverticulitis Dc Prescriptions: New amoxicillin-pot clavulanate 875-125 mg tablet 1 tab PO BID 7 Days Qty: 14 0RF Primary Care Provider: Care Physician,No Primary Referrals: Fast,Mimi, DO [Med Staff - Merchandise Shopper] - Activity Restrictions/Additional Instructions: Thank you for trusting us with your care today! Your labs images were consistent with acute diverticulitis. Diverticulitis is inflammation of your colon. This typically treatable with antibiotics Please take Tylenol (2 pills, 650 mg), ibuprofen (2 pills, 400 mg) every 6 hours as needed for pain and fever control. Please take your antibiotic as prescribed until course complete. Please return to the emergency department if your symptoms change or worsen. Please follow with your primary care physician for further outpatient evaluation and management. Print Language: Portuguese Disposition Disposition: Home, Self Care Discharge Date/Time: 12/26/23 15:38
--- NOTE | 2023-12-26 14:24 | CT_ITS ---
STUDY: CT ABDOMEN AND PELVIS WITH CONTRAST - URINARY TRACT REASON FOR EXAM: Male, 33 years old. Abdominal pain LLQ and amp; LUQ RADIATION DOSAGE (If Supplied By Facility): CTDIvol = ( 14.00 ) mGy, DLP = ( 792.82 ) mGycm TECHNIQUE: IV 100mL Isovue-370 was administered. Transaxial images were obtained from the dome of the diaphragm to the symphysis pubis subsequent to intravenous contrast administration. Multiplanar coronal and sagittal images were reformatted. The protocol utilizes one or more of the following dose reduction techniques: automated exposure control, adjustment of mA and/or kV according to patient size,and/or use of iterative reconstruction technique. COMPARISON: No relevant prior comparison study available FINDINGS: The visualized lung bases are unremarkable. The visualized portions of the heart are within normal limits. Normal liver. The gallbladder is contracted. Normal spleen. Normal pancreas. Normal bilateral adrenal glands. Normal visualized stomach. Normal small intestine. There are multiple colonic diverticula consistent with diverticulosis. Along the anterior mesenteric side of the proximal ascending colon there is focal stranding associated with a diverticula circumferential wall thickening. The appendix is visualized and appears normal. Normal abdominal aorta. No retroperitoneal adenopathy. Normal right kidney. Normal left kidney. Normal urinary bladder. Normal abdominal wall. Normal osseous structures. CT/Abdomen/Pelvis W IV Cont ONLY IMPRESSION: Focal diverticulitis of the proximal ascending colon. Electronically Signed: Kathe Royal MD at 14:53 EST ,
[2023-12-26 14:30] LABS: Absolute Lymphocyte Count 1.83 X10^3/uL (0.83-4.51); Absolute Neutrophil Count 4.5 X10^3/uL (2.0-7.7); Basophil# 0.02 X10^3/uL; Basophil% 0.3 % (0-1); Eosinophil# 0.13 X10^3/uL; Eosinophils% 1.9 % (0-5); Hematocrit 43.6 % (40-54); Hemoglobin 14.4 g/dL (13.0-16.5); Lymphocyte # 1.83 X10^3/ul (0.83-4.51); Lymphocyte % 26.1 % (19-41); Mean Corpuscular Hgb 28.9 pg (27.0-32.0); Mean Corpuscular Volume 87.6 fL (80-94); Mean Platelet Vol. 10.6 fl (6.2-12.0); Monocyte% 7.1 % (0-10); NRBC Flagged by Analyzer 0 % (0-5); Neutrophil # 4.53 X10^3/uL (2.7-7.7); Neutrophil % 64.5 % (47-70); Platelet Count 214 K/mm3 (150-450); RBC Distribution Width CV 12.1 % (11.6-14.6); Red Blood Count 4.98 M/mm3 (4.6-6.2)
[2023-12-26] MEDS: Ketorolac 15 MG/ML Vial IV (14:32)
[2023-12-26 14:46] LABS: ALB/GLOB Ratio 1.2 RATIO (0.9-2.4); AST(SGOT) 59 U/L (15-37); Alanine Aminotransfer ALT/SGPT 52 U/L (16-61); Albumin, Serum 3.6 g/dL (3.2-5.0); Alkaline Phosphatase 94 U/L (45-117); Anion Gap 3 (5-15); BUN 16 mg/dL (7-18); BUN/Creat Ratio 13.1 RATIO (10-20); Calcium,Total 8.4 mg/dL (8.5-10.1); Chloride 110 mmol/L (98-107); Creatinine, Serum 1.22 mg/dL (0.70-1.30); EST Glomerular Filtration Rate 73 mL/min (>60); Est Glom Filt Rate - Afr Amer 88 mL/min (>60); Estimated Creatinine Clearance 88.92 ml/min; Globulin 3.1 g/dL (2.2-4.2); Glucose 90 mg/dL (74-106); Lipase 37 U/L (13-75); Potassium 4.4 mmol/L (3.5-5.1); Protein, Total 6.7 g/dL (6.4-8.2); Sodium Level 142 mmol/L (136-145)
[2023-12-26] MEDS: Amox/Clavulanate 875 MG Tablet PO (15:23)
== END 2023-12-26 15:38 | disposition home or self-care (01) ==
PROVIDERS: Emergency Provider Emergency Medicine; Visit Provider Emergency Medicine
DX: K57.32 Diverticulitis of large intestine without perforation or abscess without bleeding (principal); R10.814 Left lower quadrant abdominal tenderness
CPT/HCPCS: 74177; 80053; 83690; 85025; 96374; 99283; Q9967; A4216